=== PATIENT | female | born 1995 | race African-American/Black ===

== ENCOUNTER 2021-02-26 21:55 | Emergency (ER) | payer OTHER | END 2021-02-26 23:33 | disposition home or self-care (01) | LOC: FER 21:55 | DX: O99.891 Other specified diseases and conditions complicating pregnancy (principal); R51.9 Headache, unspecified; R03.0 Elevated blood-pressure reading, without diagnosis of hypertension; Z87.891 Personal history of nicotine dependence; Z3A.10 10 weeks gestation of pregnancy | CPT/HCPCS: 99283 ==

== ENCOUNTER 2021-09-08 09:37 | Inpatient (IN) | payer OTHER ==
[~2021-09-08] VITALS: Ht 167.6 cm; Wt 92.5 kg
[2021-09-08 10:17] LABS: HGB 12.1 g/dl (12.5-16.0); MCH 31.5 pg (25.0-31.0); MCHC 34.6 g/dL (32.0-36.0); MCV 91.1 fL (78.0-100.0); MPV 10.1 fL (6.0-9.5); RBC 3.84 M/uL (4.20-5.40); WBC 5.7 K/uL (4.0-10.5)
[2021-09-08 18:09] LABS: ALBUMIN 3.2 g/dL (3.4-5.0); BILIRUBIN - TOTAL 0.5 mg/dL (0.2-1.0); CREATININE 0.79 mg/dL (0.51-0.95); GLOBULIN (CALCULATION) 3.1 g/dL; POTASSIUM 3.5 mmol/L (3.5-5.1); TOTAL PROTEIN 6.3 g/dL (6.4-8.2)
[2021-09-08 19:26] LABS: BILIRUBIN 1+ mg/dL (NEGATIVE); BLOOD 3+ Ery/uL (NEGATIVE); CLARITY CLEAR (CLEAR); COLOR YELLOW (YELLOW); GLUCOSE (U) NORMAL (NORMAL); LEUKOCYTES TRACE Leu/uL (NEGATIVE); NITRITE NEGATIVE (NEGATIVE); PROTEIN TRACE (LOW) mg/dL (NEGATIVE); UROBILINOGEN 0.2 mg/dL (0.2-1.0)
[2021-09-08 19:33] LABS: BACTERIA 3+; SQUAMOUS EPITHELIAL CELLS 20-50; URINARY RBC 20-50
[2021-09-09 07:22] LABS: HCT 27.6 % (37.0-47.0); HGB 9.5 g/dL (12.5-16.0)
[2021-09-09 08:52] LABS: BASOPHIL 0.1 % (0-2); EOSINOPHIL 0 % (0-5); HCT 27.8 % (37.0-47.0); HGB 9.5 g/dl (12.5-16.0); MCH 31.8 pg (25.0-31.0); MCHC 34.2 g/dL (32.0-36.0); MONOCYTE 5.1 % (0-12); MPV 10.8 fL (6.0-9.5); NEUTROPHIL 87.3 % (41-80); NRBC 0; PLT 177 K/uL (150-400); RBC 2.99 M/uL (4.20-5.40); RDW 12.3 % (11.5-14.0)
[2021-09-09 08:57] LABS: WBC 10.9 K/uL (4.0-10.5)
== END 2021-09-10 18:09 | disposition home or self-care (01) | DRG 786 ==
LOC: FOD 09:37 → FOB 09:37 → FOD 10:13 → FOB 10:14
PROVIDERS: ADMIT Obstetrics & Gynecology
PROC: 10D00Z1 Extraction of Products of Conception, Low, Open Approach (ICD-10-PCS; principal; 2021-09-08 17:30)
DX: O62.1 Secondary uterine inertia (principal); U07.1 COVID-19; D62 Acute posthemorrhagic anemia; O98.52 Other viral diseases complicating childbirth; Z37.0 Single live birth; Z3A.37 37 weeks gestation of pregnancy; O36.63X0 Maternal care for excessive fetal growth, third trimester, not applicable or unspecified; O99.02 Anemia complicating childbirth
CPT/HCPCS: 36415; 80053; 81001; 85014; 85018; 85025; 90686; J0456; J1100; J1885; J2274; J2405; J2795; J2916; J7050; J7120; U0002